=== PATIENT | female | born 1995 | race Two or more races ===

== ENCOUNTER → 2019-08-06 12:22 | Outpatient (CLI) | payer OTHER | END | disposition home or self-care (01) | LOC: LAB 12:22 | DX: O99.89 Other specified diseases and conditions complicating pregnancy, childbirth and the puerperium (principal) ==

== ENCOUNTER → 2019-08-06 | Outpatient (CLI) | payer OTHER | END | disposition home or self-care (01) | LOC: PRENATAL 08:00 | DX: O35.3XX1 Maternal care for (suspected) damage to fetus from viral disease in mother, fetus 1 (principal); O99.212 Obesity complicating pregnancy, second trimester; O99.282 Endocrine, nutritional and metabolic diseases complicating pregnancy, second trimester; O24.312 Unspecified pre-existing diabetes mellitus in pregnancy, second trimester; O35.3XX0 Maternal care for (suspected) damage to fetus from viral disease in mother, not applicable or unspecified; O99.89 Other specified diseases and conditions complicating pregnancy, childbirth and the puerperium ==

== ENCOUNTER 2019-11-16 16:58 | Outpatient (CLI) | payer OTHER ==
[2019-11-16] MEDS ORDERED: PRENATAL TABLE1 EAC3 PO (17:34)
== END 2019-11-17 14:58 | disposition home or self-care (01) ==
LOC: OBS/DEL 16:58
DX: O13.3 Gestational [pregnancy-induced] hypertension without significant proteinuria, third trimester (principal)

== ENCOUNTER 2019-11-30 17:58 | Inpatient (IN) | payer OTHER ==
[~2019-11-30] VITALS: Ht 162.6 cm; Wt 100.7 kg
[~2019-11-30 17:58] MED LIST: PRENATAL TABLE1 EAC3 PO
== END 2019-12-03 17:48 | disposition home or self-care (01) | DRG 768 ==
LOC: OBS/DEL 17:58 → OB/GYN 12-01 10:35 → LDR 12-01 10:35 → OB/GYN 12-01 21:23
PROVIDERS: ADMIT Obstetrics & Gynecology
PROC: 10E0XZZ Delivery of Products of Conception, External Approach (ICD-10-PCS; principal; 2019-12-01)
PROC: 0DQP0ZZ Repair Rectum, Open Approach (ICD-10-PCS; 2019-12-01)
PROC: 4A1HXCZ Monitoring of Products of Conception, Cardiac Rate, External Approach (ICD-10-PCS; 2019-12-01)
PROC: 4A033R1 Measurement of Arterial Saturation, Peripheral, Percutaneous Approach (ICD-10-PCS; 2019-12-01)
DX: O70.3 Fourth degree perineal laceration during delivery (principal); Z37.0 Single live birth; Z3A.39 39 weeks gestation of pregnancy; Z22.330 Carrier of Group B streptococcus